=== PATIENT | female | born 1960 ===

== ENCOUNTER 2023-04-22 04:41 | Day surgery (SDC) | payer OTHER ==
[2023-04-16 12:21] VITALS: BMI 27.3
[2023-04-22] MEDS ORDERED: BUPIVACAINE HCL/PF 0.25% (2.5MG/ML) 10 ML VIAL ONE (07:48)
[2023-04-22] MEDS ORDERED: LIDOCAINE HCL/PF 2% SDV 5ML VIAL ONE (08:01)
[2023-04-22] MEDS ORDERED: KETOROLAC TROMETHAMINE 30 MG/1 ML VIAL ONE (08:01)
[2023-04-22] MEDS ORDERED: MIDAZOLAM HCL 2 MG/2 ML SINGLE DOSE VIAL ONE (08:01)
[2023-04-22] MEDS ORDERED: PROPOFOL 20 ML ONE (08:01)
[2023-04-22] MEDS ORDERED: FENTANYL CITRATE/PF 50 MCG/ML VIAL ONE (08:01)
[2023-04-22] MEDS ORDERED: ONDANSETRON 4 MG/2 ML VIAL ONE (08:01)
[2023-04-22] MEDS ORDERED: ROCURONIUM BROMIDE 50 MG/5 ML SYRINGE ONE ×2 (08:01→09:35)
[2023-04-22] MEDS ORDERED: DEXAMETHASONE SOD PHOSPHATE 4 MG/1 ML VIAL ONE (08:01)
[2023-04-22] MEDS ORDERED: SUGAMMADEX SODIUM 200 MG/2 ML VIAL ONE (08:01)
[2023-04-22] MEDS ORDERED: ceFAZolin SODIUM 1 GM VIAL ONE (08:02)
[2023-04-22] MEDS ORDERED: oxyCODONE HCL 5 MG TABLET PO PRN ×2 (08:06)
[2023-04-22] MEDS ORDERED: PROMETHAZINE HCL 25 MG/1 ML VIAL IVPB PRN (08:06)
[2023-04-22] MEDS ORDERED: ONDANSETRON 4 MG/2 ML VIAL IVPUSH PRN (08:06)
[2023-04-22] MEDS ORDERED: ACETAMINOPHEN 1000 MG/100 ML BAG IVPB PRN (08:07)
[2023-04-22] MEDS ORDERED: LACTATED RINGERS SOLUTION 1,000 ML IV SCH (08:15)
[2023-04-22] MEDS ORDERED: ceFAZolin SODIUM 1 GM VIAL IVPB ONE (08:48)
[2023-04-22] MEDS ORDERED: cefOXitin SODIUM 2 GM VIAL (RESTRICTED TO ID) IVPB ONE ×2 (08:50→08:54)
[2023-04-22] MEDS ORDERED: BUPIVACAINE HCL/PF 0.25% (2.5MG/ML) 10 ML VIAL IJ ONE (09:01)
[2023-04-22] MEDS ORDERED: SEVOFLURANE 250 ML BTL ONE (09:54)
[2023-04-22] MEDS ORDERED: ACETAMINOPHEN INJECTION 100 ML IVPB ONE (12:17)
[2023-04-22 13:35] VITALS: TEMP 97.6
[2023-04-22 14:31] VITALS: RESP 20
[2023-04-22 15:58] VITALS: BP 108/62; PULSE 72
== END 2023-04-22 17:01 | disposition home or self-care (01) ==
LOC: JASU-SURG 04:41
PROVIDERS: ATTEND Surgery
PROC: 8E0W4CZ Robotic Assisted Procedure of Trunk Region, Percutaneous Endoscopic Approach (ICD-10-PCS; 2023-04-22)
PROC: 0FT44ZZ Resection of Gallbladder, Percutaneous Endoscopic Approach (ICD-10-PCS; principal; 2023-04-22 08:00)
DX: K81.1 Chronic cholecystitis (principal)
CPT/HCPCS: 47562; S2900; 86850; 86900; 86901; 88304-TC; 88307-TC; 88313-TC; 94760